=== PATIENT | male | born 1950 | race Caucasian/White ===

== ENCOUNTER → 2016-11-30 | Outpatient (REF) | payer OTHER ==
[2016-11-30 12:55] LABS: URIC ACID 5.6 MG/DL (3.5-7.2)
[2016-12-07 00:08] LABS: Lyme Disease IgG/IgM Antibodie <0.91 ISR (0.00-0.90); Lyme Disease IgM Ab Quantitati <0.80 index (0.00-0.79)
== END ==
LOC: M LAB REF 12:13
PROVIDERS: ATTEND Family Medicine
DX: M25.561 Pain in right knee (principal); M25.562 Pain in left knee; M25.569 Pain in unspecified knee

== ENCOUNTER 2018-02-03 18:14 | Emergency (ER) | payer MEDICARE, OTHER ==
[2018-02-03] MEDS ORDERED: LISSAMINE GREEN OPHTH 1.5 MG STRIP As Ordered (18:49)
[2018-02-03] MEDS: FLUORESCEIN OPHTH 1 MG STRIP OS (19:00)
[2018-02-03] MEDS: TETRACAINE 0.5% OPHTH SOLN 4ML OS (19:00)
[2018-02-03] MEDS: LISSAMINE GREEN OPHTH 1.5 MG STRIP OS (19:15)
[2018-02-03] MEDS: ERYTHROMYCIN OPHTH OINT OS (19:33)
== END 2018-02-03 19:43 | disposition home or self-care (01) ==
LOC: M ED 18:14
DX: S05.02XA Injury of conjunctiva and corneal abrasion without foreign body, left eye, initial encounter (principal); W22.8XXA Striking against or struck by other objects, initial encounter; Y92.89 Other specified places as the place of occurrence of the external cause; E78.00 Pure hypercholesterolemia, unspecified; K21.9 Gastro-esophageal reflux disease without esophagitis; F32.9 Major depressive disorder, single episode, unspecified; Z79.899 Other long term (current) drug therapy
CPT/HCPCS: 99283

== ENCOUNTER 2019-07-01 08:43 | Day surgery (SDC) | payer MEDICARE, OTHER ==
[~2019-07-01] VITALS: Ht 190.5 cm; Wt 114.2 kg
[~2019-07-01 08:43] MED LIST: ESCI20TA; EZET10TA21; NAPR220C14 PO; OMEP40CA97
[2019-07-01] MEDS ORDERED: NS 1,000 ML IV ONE (09:15)
[2019-07-01] MEDS ORDERED: PROPOFOL 200 MG/20 ML VIAL As Ordered ONE (10:13)
[2019-07-01] MEDS ORDERED: LIDOCAINE 2% INJ 100 MG/5 ML SDV (FOR ANES.) As Ordered ONE (10:13)
--- NOTE | 2019-07-01 11:12 | ROOR ---
Patient Name: Obed Pfeiffer Procedure Date: 07/01/2019 10:36 AM Date of : 1950 Age: 68 Room: [facility] Gender: Male Note Status: Finalized Procedure: Colonoscopy Indications: High risk colon cancer surveillance: Personal history of colonic polyps Providers: Desmond DUARTE MD Referring MD: Ulises Phillips MD Requesting Provider: Medicines: Monitored Anesthesia Care Complications: No immediate complications. Procedure: Pre-Anesthesia Assessment: - The heart rate, respiratory rate, oxygen saturations, blood pressure, adequacy of pulmonary ventilation, and response to care were monitored throughout the procedure. The Colonoscope was introduced through the anus and advanced to the cecum, identified by appendiceal orifice and ileocecal valve. The colonoscopy was performed without difficulty. The patient tolerated the procedure well. The quality of the bowel preparation was good. Findings: The perianal and digital rectal examinations were normal. Two sessile polyps were found in the splenic flexure. The polyps were 4 to 5 mm in size. These polyps were removed with a cold snare. Resection and retrieval were complete. Small Internal Hemorrhoids. The exam was otherwise without abnormality on direct and retroflexion views. Impression: - Two 4 to 5 mm polyps at the splenic flexure, removed with a cold snare. Resected and retrieved. - Small Internal Hemorrhoids. - The examination was otherwise normal on direct and retroflexion views. Recommendation: - Repeat colonoscopy in 5 years for surveillance. Desmond Duarte MD Desmond DUARTE MD 07/01/2019 11:12:41 AM Electronically signed by Desmond DUARTE MD Number of Addenda: 0 Note Initiated On: 07/01/2019 10:36 AM Estimated Blood Loss: Estimated blood loss: none.
[2019-07-01 11:35] VITALS: BP 123/76
== END 2019-07-01 11:50 | disposition home or self-care (01) ==
LOC: M OPP 08:43
PROVIDERS: ATTEND Internal Medicine Gastroenterology
DX: Z12.11 Encounter for screening for malignant neoplasm of colon (principal); Z86.010 Personal history of colon polyps; K64.8 Other hemorrhoids; D12.3 Benign neoplasm of transverse colon; G47.30 Sleep apnea, unspecified; Z79.899 Other long term (current) drug therapy

== ENCOUNTER → 2019-08-01 | Outpatient (REF) | payer MEDICARE, OTHER | LOC: M LAB REF 18:42 | PROVIDERS: ATTEND Dermatology | DX: D22.62 Melanocytic nevi of left upper limb, including shoulder (principal) | CPT/HCPCS: 11102; 17110; 88305; G0463 ==

== ENCOUNTER → 2020-05-12 | Outpatient (REF) | payer MEDICARE, OTHER | LOC: M LAB REF 17:11 | PROVIDERS: ATTEND Physician Assistant | DX: R21 Rash and other nonspecific skin eruption (principal) ==

== ENCOUNTER → 2020-07-03 | Outpatient (CLI) | payer MEDICARE, OTHER ==
[~2020-07-03] MED LIST changes: -ESCI20TA; +ESCI20TA16
== END ==
LOC: M LABSMTC 08:03
PROVIDERS: ATTEND Orthopaedic Surgery
DX: Z01.812 Encounter for preprocedural laboratory examination (principal); Z20.828 Contact with and (suspected) exposure to other viral communicable diseases

== ENCOUNTER → 2020-08-02 | Outpatient (CLI) | payer SELFPAY ==
[~2020-08-02] MED LIST changes: +ESCI20TA; -ESCI20TA16
== END ==
LOC: M LABSMTC 12:27
PROVIDERS: ATTEND Pediatrics
DX: Z20.828 Contact with and (suspected) exposure to other viral communicable diseases (principal)

== ENCOUNTER → 2021-01-13 | Outpatient (REF) | payer MEDICARE, OTHER ==
[~2021-01-13] MED LIST changes: -ESCI20TA; +ESCI20TA16
[2021-01-13 17:31] LABS: C REACTIVE PROTEIN QUANTITATIV < 0.30 MG/DL (0.00-0.30); RHEUMATOID FACTOR QUANT 33.9 IU/ML (<15.0)
[2021-01-18 00:07] LABS: ANTINUCLEAR ANTIBODIES DIRECT Negative (Negative); CYCLIC CITRULLINATED PEPTIDE 2 units (0-19)
== END ==
LOC: M LAB REF 16:19
PROVIDERS: ATTEND Family Medicine
DX: M19.90 Unspecified osteoarthritis, unspecified site (principal); M54.5 Low back pain

== ENCOUNTER → 2021-05-13 | Outpatient (REF) | payer MEDICARE, OTHER ==
[~2021-05-13] MED LIST changes: +OMEP40CA4; -OMEP40CA97
== END ==
LOC: M LAB REF 15:53
PROVIDERS: ATTEND Family Medicine
DX: D64.9 Anemia, unspecified (principal)

== ENCOUNTER 2024-01-11 09:09 | Emergency (ER) | payer MEDICARE, OTHER ==
[~2024-01-11] VITALS: Ht 190.5 cm; Wt 111.6 kg
[2024-01-11] MEDS ORDERED: GABA-282 (09:35)
[2024-01-11] MEDS ORDERED: vitamin D PO (09:35)
[2024-01-11] MEDS ORDERED: LEXA1TAB (09:35)
[2024-01-11 12:20] LABS: BASO % 0.3 % (0.0-1.0); EOS % 0.3 % (0.0-3.0); HEMATOCRIT 41.4 % (42.0-52.0); HEMOGLOBIN 13.8 g/dl (13.5-17.5); LYMPH # 0.9 10^3/uL (1.5-5.0); LYMPH % 10.4 % (24.0-44.0); MEAN CORPUSCULAR HEMOGLOBIN 29.4 pg (27.0-33.0); MEAN CORPUSCULAR HGB CONC 33.3 g/dl (32.0-36.5); MEAN CORPUSCULAR VOLUME 88.3 fl (80.0-96.0); MONO # 0.4 10^3/uL (0.0-0.8); MONO % 4.2 % (2.0-8.0); NEUTROPHILS # 7.4 10^3/uL (1.5-8.5); NEUTROPHILS % 84.6 % (36.0-66.0); PLATELET COUNT, AUTOMATED 178 10^3/uL (150-450); RED BLOOD COUNT 4.69 10^6/uL (4.30-6.10); WHITE BLOOD COUNT 8.8 10^3/uL (4.0-10.0)
[2024-01-11 12:35] LABS: INR 1.04; PROTHROMBIN TIME 13.3 SECONDS (12.5-14.5)
[2024-01-11 12:45] LABS: ALBUMIN 3.6 G/DL (3.2-5.2); ALKALINE PHOSPHATASE 67 U/L (46-116); ALT/SGPT 20 U/L (7.0-40); AST/SGOT 22 U/L (<34); BILIRUBIN,TOTAL 0.8 MG/DL (0.3-1.2); BLOOD UREA NITROGEN 15 MG/DL (9-23); CALCIUM LEVEL 8.6 MG/DL (8.3-10.6); CARBON DIOXIDE LEVEL 31 MMOL/L (20-31); CHLORIDE LEVEL 104 MMOL/L (98-107); CREATININE FOR GFR 0.84 MG/DL (0.70-1.30); GLOMERULAR FILTRATION RATE > 60.0 (>42); GLUCOSE, FASTING 109 MG/DL (74-106); SODIUM LEVEL 139 MMOL/L (136-145)
[2024-01-11 12:47] LABS: FREE T4 0.98 NG/DL (0.89-1.76); THYROID STIMULATING HORMONE 1.136 uIU/ML (0.55-4.78)
[2024-01-11 13:46] VITALS: BP 171/86; TEMP 97.5; O2SAT 98
[2024-01-11] MEDS: OXYMETAZOLINE 0.05% NASAL SPRAY (AFRIN) ONE (13:51)
== END 2024-01-11 14:06 | disposition home or self-care (01) ==
LOC: M ED 09:09
DX: I49.1 Atrial premature depolarization (principal); I49.3 Ventricular premature depolarization; R04.0 Epistaxis; K21.9 Gastro-esophageal reflux disease without esophagitis; E78.5 Hyperlipidemia, unspecified; G47.33 Obstructive sleep apnea (adult) (pediatric); F32.A Depression, unspecified; Z79.899 Other long term (current) drug therapy

== ENCOUNTER → 2024-03-03 | Outpatient (REF) | payer MEDICARE, OTHER ==
[~2024-03-03] MED LIST changes: +GABA-282; +LEXA1TAB; +vitamin D PO
[2024-03-03 12:43] LABS: INR 1.05; PARTIAL THROMBOPLASTIN TIME 26.7 SECONDS (24.8-34.2); PROTHROMBIN TIME 13.4 SECONDS (12.5-14.5)
== END ==
LOC: M LAB REF 12:19
PROVIDERS: ATTEND Family Medicine
DX: Z01.818 Encounter for other preprocedural examination (principal); Z79.01 Long term (current) use of anticoagulants

== ENCOUNTER 2024-12-23 07:04 | Day surgery (SDC) | payer MEDICARE, OTHER ==
[~2024-12-23] VITALS: Ht 190.5 cm; Wt 113.8 kg
[~2024-12-23 07:04] MED LIST changes: +ERGO500029 PO; -EZET10TA21; +EZET10TA21 PO; +GABA-1172 PO; -GABA-282; -LEXA1TAB; +LEXA1TAB PO; +LIDOCAINE 2% 100MG/5ML SDV (FOR ANES.) As Ordered ONE; +OLME5TAB24 PO; -OMEP40CA4; +OMEP40CA4 PO; +TRAN1DIS4; +VITA100093 PO; +propofoL 200 MG/20 ML VIAL As Ordered ONE
[2024-12-23] MEDS ORDERED: GLYCOPYRROLATE INJ 0.2 MG/ML 2 ML VIAL As Ordered ONE (07:08)
[2024-12-23] MEDS ORDERED: GLUCAGON INJ 1MG VIAL As Ordered ONE (08:31)
[2024-12-23 08:39] VITALS: TEMP 98.1
[2024-12-23 09:00] VITALS: BP 110/70; O2SAT 96
== END 2024-12-24 09:02 | disposition home or self-care (01) ==
LOC: M OPP 07:04
PROVIDERS: ATTEND Internal Medicine Gastroenterology
DX: D12.5 Benign neoplasm of sigmoid colon (principal); D12.2 Benign neoplasm of ascending colon; K64.8 Other hemorrhoids; K57.30 Diverticulosis of large intestine without perforation or abscess without bleeding; Z86.0100 Personal history of colon polyps, unspecified; G47.30 Sleep apnea, unspecified; Z79.899 Other long term (current) drug therapy
CPT/HCPCS: 45385; 88305; J1596; J1610